=== PATIENT | female | born 1960 | race Caucasian/White ===

== ENCOUNTER 2018-12-03 16:54 | Inpatient (IN) | payer OTHER ==
[2018-12-03] MEDS ORDERED: SODIUM CHLORIDE 1,000 ML IV STA (17:17)
[2018-12-03] MEDS ORDERED: ONDANSETRON 4 MG/2 ML VIAL IVPUSH ONE (17:17)
[2018-12-03] MEDS ORDERED: ONDANSETRON 4 MG/2 ML VIAL ONE (17:36)
--- NOTE | 2018-12-03 17:48 | PDOC ---
Documentation entered by Sp Shin SCRIBE, acting as scribe for Nancie Mendoza MD. Nancie Mendoza MD: This documentation has been prepared by the Kip lees Daniel, SCRIBE, under my direction and personally reviewed by me in its entirety. I confirm that the documentation accurately reflects all work, treatment, procedures, and medical decision making performed by me. History of Present Illness - General Chief Complaint: Blood Sugar Problem Stated Complaint: VOMITING, HIGH BLOOD SUGAR Time Seen by Provider: 12/03/18 16:57 History Source: Patient Exam Limitations: No Limitations - History of Present Illness Initial Comments: 12/03/18 17:25 The patient is a 58 year old female with a past medical history of diabetes and GERD here today for evaluation of vomiting and elevated blood sugar. The patient reports that she began NBNB emesis x several episodes since last night and went to an urgent care facility today who recommended that she come to the ER for r/o DKA. She reports starting the Atkins diet recently. She also notes being constipated for 1 week but states that she is able to pass gas. Patient notes an increase in thirst and an increase in urinary frequency. Patients blood sugar was 258 upon arrival. Patient's blood sugar was 261 at urgent care and urinalysis showed ketones and glucosuria. pt initially attributed sx of n/v to omelette yesterday morning. unable to tolerate toast today, but able to take PO alkaline water Patient denies headache, lightheadedness. Denies fever, chills. Denies chest pain, shortness of breath. Denies diarrhea, abdominal pain. Denies travel or sick contacts Allergies: NKA Social history: Denies illicit drug use, tobacco, or alcohol use. Surgical history: Denies any surgery PCP: Marcel Polanco 12/03/18 17:44 Past History - Past Medical History Allergies/Adverse Reactions: Allergies Allergy/AdvReac Type Severity Reaction Status Date / Time No Known Allergies Allergy Verified 12/03/18 16:55 Home Medications: Ambulatory Orders Canagliflozin [Invokana] 100 mg PO DAILY 12/03/18 metFORMIN XR [Glucophage *Xr* -] 1,000 mg PO BID 12/03/18 COPD: No Diabetes: Yes - Suicide/Smoking/Psychosocial Hx Smoking History: Never smoked Have you smoked in the past 12 months: No Information on smoking cessation initiated: No Hx Alcohol Use: No Review of Systems - Review of Systems Able to Perform ROS?: Yes Comments:: 12/03/18 17:26 GENERAL/CONSTITUTIONAL: No fever or chills. No weakness. no sweats. HEAD, EYES, EARS, NOSE AND THROAT: No change in vision or hearing. No ear pain or discharge. No sore throat or mouth pain. No difficulty swallowing. No congestion. CARDIOVASCULAR: No chest pain or palpitations, syncope or edema. RESPIRATORY: No SOB, cough, wheezing, or hemoptysis. GASTROINTESTINAL +vomiting. +constipation. No abdominal pain. No diarrhea. No bloody stools. +flatus GENITOURINARY: No hematuria, dysuria, frequency, urgency or other changes. MUSCULOSKELETAL: No joint or muscle swelling or pain. No decreased range of motion. No neck or back pain. SKIN: No rash or changes in skin color or lesions. No wounds. Endocrine: +increased thirst, +hyperglycemia. no polyuria. NEUROLOGIC: alert and oriented appropriately No headache, dizziness, loss of consciousness, or change in strength/sensation. No gait instability. HEMATOLOGIC/LYMPHATIC: No anemia, easy bruising/bleeding ALLERGIC/IMMUNOLOGIC: No allergies PSYCH: no anxiety/depression All other systems reviewed and negative, or as documented in HPI. 12/03/18 17:45 12/03/18 18:22 12/03/18 18:22 *Physical Exam - Vital Signs Last Vital Signs Temp Pulse Resp BP Pulse Ox 97.5 F L 119 H 18 124/73 99 12/03/18 16:54 12/03/18 16:54 12/03/18 16:54 12/03/18 16:54 12/03/18 16:54 - Physical Exam Comments: 12/03/18 17:26 General: awake and alert, NAD. HEENT: NCAT, PERRL, EOMI, clear conjunctiva, anicteric, clear oropharynx, no oral lesions.. +dry mucous membranes. Neck: neck supple, FROM Resp: CTAB, normal and even respirations, no respiratory distress CVS: +tachycardia. Regular rhythm, no murmurs, 2+ peripheral pulses throughout, no peripheral edema Abdomen: soft, obese, NT, no rebound or guarding. No CVAT. Back: nontender, normal inspection and ROM MSK: no edema, JON x4, ROM intact. No clubbing or cyanosis. normal bulk and tone. Neuro: alert, oriented appropriately; no focal neurologic deficits Skin: cool and dry to touch, cap refill <2 sec, normal color 12/03/18 17:45 12/03/18 17:46 12/03/18 18:22 Heart Score/ECG Review #1 ECG reviewed & interpreted by me at: 17:55 General ECG Interpretation: Sinus Rhythm, Normal Intervals Compared to previous ECG there are: Previous ECG unavail 12/03/18 18:40 sinus tachycardia at 108 bpm, nonspecific T wave abnormalities, poor R wave progression ED Treatment Course - LABORATORY CBC & Chemistry Diagram: 12/03/18 17:25 12/03/18 17:25 - ADDITIONAL ORDERS Additional order review: Laboratory Results 12/03/18 17:10 POC Glucometer 258 12/03/18 17:10 POC Glucometer 258 - RADIOLOGY Radiology Studies Ordered: Category Date Time Status ABDOMEN & PELVIS CT WITH CONTR [CT] Stat CT Scan 12/03/18 17:18 Ordered - Medications Given in the ED: ED Medications Discontinued Medications Generic Name Dose Route Start Last Admin Trade Name Freq PRN Reason Stop Dose Admin Ondansetron HCl 4 mg 12/03/18 17:17 12/03/18 17:40 Zofran Injection IVPUSH 12/03/18 17:18 4 mg ONCE ONE Administration Medical Decision Making - Critical Care Time Total Critical Care Time (minutes): 45 (metabolic crisis, DKA, dehydration) Critical Care Statement: The care of this patient involved high complexity decision making to prevent further life threatening deterioration of the patient 's condition and/or to evaluate & treat vital organ system(s) failure or risk of failure. - Medical Decision Making 12/03/18 17:46 See HPI for details. Prior notes reviewed, including admissions, discharges and consultations. Vital signs reviewed, +tachycardia, likely from dehydration. no pain no fever, respiratory sx or hypoxia. DDX DKA, HHS, dehydration, ketosis, electrolyte/metabolic derangements, infection, SBO, medication side effect, ileus. constipation. mesenteric ischemia , pancreatitis, hepatitis. laboratory results and imaging reviewed, basic labs notable for leukocytosis 16K with associated hemoconcentration, c/w dehydration. LFTs/lipase wnl Cr elevated 1.7, no prior, GFR borderline; this is most likely pre-renal/ dehydration with her recent Atkins diet precipitating non AG ketosis. ketosis/acetones noted, moderate euglycemic DKA AG 24. PH 7.11, acute metabolic acidosis ED course -interventions: IVF x2L (NSS, changed to LR for balanced chrystalloid), zofran, pepcid, reassess. moderate euglycemic DKA, indication for insulin gtt, initiated here at 0.1 units /kg/hr no benefit clinically with risk of side effects, of SQ or IV insulin bolus, especially pt is euglycemic with glucose 260s CT with no IV contrast with borderline GFR and risk of nephrotoxicity from profound dehydration and moderate DKA 12/03/18 18:18 ICU consultation, under Dr Mueller; spoke and s/o to Dr Valdivia resident on ICU admitting for moderate DKA, MORTEZA, dehydration, ICU and [facility] transfer updated to Dr Polanco, PMD; s/o to [facility], admitting to Dr Ham service 12/03/18 18:22 12/03/18 18:37 12/03/18 18:50 12/03/18 18:54 *DC/Admit/Observation/Transfer Diagnosis at time of Disposition: MORTEZA (acute kidney injury), Dehydration DKA (diabetic ketoacidosis) Qualifiers: Diabetes mellitus type: type 2 Diabetes mellitus complication detail: without coma Qualified Code(s): E11.10 - Type 2 diabetes mellitus with ketoacidosis without coma - Discharge Dispostion Condition at time of disposition: Guarded Decision to Admit order: Yes Decision to Admit order Date/Time: 12/03/18 18:21 Decision to Admit Order Category Date Time Status Decision to Admit to Hospital Routine Admission 12/03/18 18:20 Ordered - Referrals Referrals: Marcel Polanco MD [Primary Care Provider] - - Patient Instructions - Post Discharge Activity
[2018-12-03 17:53] LABS: HEMATOCRIT 50.1 % (32.4-45.2); MCH 29.6 pg (25.7-33.7); MEAN CELL VOLUME 92.4 fl (80-96); MEAN PLT VOLUME 9.9 fl (7.5-11.1); PLATELET COUNT 407 K/MM3 (134-434); RBC 5.42 M/mm3 (3.60-5.2); RDW 13.8 % (11.6-15.6); WHITE BLOOD COUNT 16.1 K/mm3 (4.0-10.8)
[2018-12-03 17:54] LABS: ALBUMIN 4.2 g/dl (3.4-5.0); BILIRUBIN,TOTAL 1.8 mg/dl (0.2-1); CALCIUM 9.7 mg/dl (8.5-10); CREATININE 1.7 mg/dl (0.55-1.3); POTASSIUM 4.2 mmol/L (3.5-5.1); TOT PROT 8.2 g/dl (6.4-8.2)
[2018-12-03] MEDS ORDERED: LACTATED RINGERS SOLUTION 1000 ML INFUS.BAG IV ONE (18:06)
[2018-12-03 18:10] LABS: PLATELET ESTIMATE ADEQUATE
[2018-12-03] MEDS ORDERED: FAMOTIDINE 20 MG/50 ML IVPB 20 MG/50 ML MG IVPB ONE (18:15)
[2018-12-03] MEDS ORDERED: INSULIN REGULAR HUMAN 100 UNITS/ML *VIAL ONE (18:20)
[2018-12-03 18:23] LABS: URINE APPEARANCE CLEAR; URINE BILIRUBIN 2+ (NEGATIVE); URINE COLOR YELLOW; URINE GLUCOSE (UA) 2+ (NEGATIVE); URINE KETONE 4+ (NEGATIVE)
[2018-12-03 18:24] LABS: URINE LEUK ESTERASE 0 (NEGATIVE); URINE NITRITE NEGATIVE (NEGATIVE); URINE PROTEIN 2+ (NEGATIVE); URINE UROBILINOGEN 0.2 (0.2-1.0)
[2018-12-03 18:27] LABS: EPI CELLS MODERATE /HPF; URINE BACTERIA FEW /hpf (NEGATIVE)
[2018-12-03] MEDS ORDERED: INSULIN REGULAR 100 UNITS in SODIUM CHLORIDE 99 ML IVPB SCH ×2 (18:30→20:51)
[2018-12-03 18:44] LABS: VENOUS PO2 52.4 mmHg (30-40)
[2018-12-03 18:47] LABS: VENOUS PH 7.11 (7.31-7.41)
[2018-12-03] MEDS ORDERED: SODIUM CHLORIDE 1,000 ML IV SCH (19:45)
[2018-12-03] MEDS ORDERED: DEXTROSE 5%-0.45% SALINE 1,000 ML IV SCH (20:00)
[2018-12-03 20:05] LABS: CREATININE 1.5 mg/dl (0.55-1.3); POTASSIUM 3.9 mmol/L (3.5-5.1)
--- NOTE | 2018-12-03 20:05 | CONSULT ---
Consultation: ICU CONSULT REQUEST: HISTORY OF PRESENT ILLNESS: 58F with pmh of DM2 and GERD presents to the ED with multiple episodes of vomiting for the past week as well as constipation for the past 2 weeks. Notably she started a Atkins-Keto diet for the past 2 weeks where she ate a very limited amount of carbs. She did this because she had stressors at work and had gained 10 pounds over the last few months, her fingerstick glucose being in the 300's during that time. This morning she came to her chiropractor who after hearing her symptoms suggested she goes to an urgent care. Once there she was found to have ketones and glucose in her urine so she was sent to the ER at [facility] where she was evaluated and diagnosed with mild DKA with glucose of 273, 2+ acetone and UA with 2+ glucose and 4+ ketones. Treated with 2L of fluids and insulin. Transferred to our ICU for management. REVIEW OF SYSTEMS: Asymptomatic CONSTITUTIONAL: Absent: fever, chills, diaphoresis, generalized weakness, malaise, loss of appetite, weight change HEENT: Absent: rhinorrhea, nasal congestion, throat pain, throat swelling, difficulty swallowing, mouth swelling, ear pain, eye pain, visual changes CARDIOVASCULAR: Absent: chest pain, syncope, palpitations, irregular heart rate, lightheadedness , peripheral edema RESPIRATORY: Absent: cough, shortness of breath, dyspnea with exertion, orthopnea, wheezing, stridor, hemoptysis GASTROINTESTINAL: Absent: abdominal pain, abdominal distension, nausea, vomiting, diarrhea, constipation, melena, hematochezia GENITOURINARY: Absent: dysuria, frequency, urgency, hesitancy, hematuria, flank pain, genital pain MUSCULOSKELETAL: Absent: myalgia, arthralgia, joint swelling, back pain, neck pain SKIN: Absent: rash, itching, pallor HEMATOLOGIC/IMMUNOLOGIC: Absent: easy bleeding, easy bruising, lymphadenopathy, frequent infections ENDOCRINE: Absent: unexplained weight gain, unexplained weight loss, heat intolerance, cold intolerance NEUROLOGIC: Absent: headache, focal weakness or paresthesias, dizziness, unsteady gait, seizure, mental status changes, bladder or bowel incontinence PSYCHIATRIC: Absent: anxiety, depression, suicidal or homicidal ideation, hallucinations. PHYSICAL EXAMINATION Vital Signs - 24 hr 12/03/18 12/03/18 16:54 19:19 Temperature 97.5 F L 97.8 F Pulse Rate 119 H Pulse Rate [ 109 H Left Apical] Respiratory 18 20 Rate Blood Pressure 124/73 Blood Pressure 143/73 [Right Arm] O2 Sat by Pulse 99 98 Oximetry (%) GENERAL: Awake, alert, and fully oriented, in no acute distress. HEAD: Normal with no signs of trauma. EYES: Pupils equal, round and reactive to light, extraocular movements intact, sclera anicteric, conjunctiva clear. No lid lag. EARS, NOSE, THROAT: Ears normal, nares patent, oropharynx clear without exudates. Moist mucous membranes. NECK: Normal range of motion, supple without lymphadenopathy, JVD, or masses. LUNGS: Breath sounds equal, clear to auscultation bilaterally. No wheezes, and no crackles. No accessory muscle use. HEART: Regular rate and rhythm, normal S1 and S2 without murmur, rub or gallop. ABDOMEN: Soft, nontender, not distended, normoactive bowel sounds, no guarding, no rebound, no masses. No hepatomegaly or splenomegaly. MUSCULOSKELETAL: Normal range of motion at all joints. No bony deformities or tenderness. No CVA tenderness. UPPER EXTREMITIES: 2+ pulses, warm, well-perfused. No cyanosis. No clubbing. Cap refill <2 seconds. No peripheral edema. LOWER EXTREMITIES: 2+ pulses, warm, well-perfused. No calf tenderness. No peripheral edema. NEUROLOGICAL: Cranial nerves II-XII intact. Normal speech. Normal gait. PSYCHIATRIC: Cooperative. Good eye contact. Appropriate mood and affect. SKIN: Warm, dry, normal turgor, no rashes or lesions noted. Laboratory Results - last 24 hr 12/03/18 12/03/18 12/03/18 17:10 17:25 17:25 WBC 16.1 H RBC 5.42 H Hgb 16.0 H Hct 50.1 H MCV 92.4 MCH 29.6 MCHC 32.0 RDW 13.8 Plt Count 407 MPV 9.9 Absolute Neuts (auto) 13.8 Neutrophils % No Result Required. Neutrophils % (Manual) 82.0 Band Neutrophils % 4.0 Lymphocytes % No Result Required. Lymphocytes % (Manual) 9.0 Monocytes % (Manual) 5 Platelet Estimate Adequate VBG pH POC VBG pCO2 POC VBG pO2 VBG HCO3 VBG O2 Sat (Benoit) VBG Base Excess Sodium 133 L Potassium 4.2 Chloride 100 Carbon Dioxide 9 L Anion Gap 24 H BUN 27.0 H Creatinine 1.7 H Est GFR (CKD-EPI)AfAm 37.60 Est GFR (CKD-EPI)NonAf 32.44 POC Glucometer 258 Random Glucose 273 H Lactic Acid Calcium 9.7 Total Bilirubin 1.8 H AST 14 L ALT 15 Alkaline Phosphatase 92 Total Protein 8.2 Albumin 4.2 Lipase 84 Urine Color Urine Appearance Urine pH Ur Specific [place] Urine Protein Urine Glucose (UA) Urine Ketones Urine Blood Urine Nitrite Urine Bilirubin Urine Urobilinogen Ur Leukocyte Esterase Urine WBC (Auto) Urine RBC (Auto) U Epithel Cells (Auto) Urine Bacteria (Auto) Acetone, Qual 12/03/18 12/03/18 12/03/18 17:25 17:25 17:25 WBC RBC Hgb Hct MCV MCH MCHC RDW Plt Count MPV Absolute Neuts (auto) Neutrophils % Neutrophils % (Manual) Band Neutrophils % Lymphocytes % Lymphocytes % (Manual) Monocytes % (Manual) Platelet Estimate VBG pH 7.11 L* POC VBG pCO2 26.0 L POC VBG pO2 52.4 H VBG HCO3 7.9 L VBG O2 Sat (Benoit) 81.6 H VBG Base Excess -21.3 L Sodium Potassium Chloride Carbon Dioxide Anion Gap BUN Creatinine Est GFR (CKD-EPI)AfAm Est GFR (CKD-EPI)NonAf POC Glucometer Random Glucose Lactic Acid 1.6 Calcium Total Bilirubin AST ALT Alkaline Phosphatase Total Protein Albumin Lipase Urine Color Urine Appearance Urine pH Ur Specific [place] Urine Protein Urine Glucose (UA) Urine Ketones Urine Blood Urine Nitrite Urine Bilirubin Urine Urobilinogen Ur Leukocyte Esterase Urine WBC (Auto) Urine RBC (Auto) U Epithel Cells (Auto) Urine Bacteria (Auto) Acetone, Qual Positive moderate 2+ H 12/03/18 12/03/18 18:15 19:40 WBC RBC Hgb Hct MCV MCH MCHC RDW Plt Count MPV Absolute Neuts (auto) Neutrophils % Neutrophils % (Manual) Band Neutrophils % Lymphocytes % Lymphocytes % (Manual) Monocytes % (Manual) Platelet Estimate VBG pH POC VBG pCO2 POC VBG pO2 VBG HCO3 VBG O2 Sat (Benoit) VBG Base Excess Sodium Potassium Chloride Carbon Dioxide Anion Gap BUN Creatinine Est GFR (CKD-EPI)AfAm Est GFR (CKD-EPI)NonAf POC Glucometer 174 Random Glucose Lactic Acid Calcium Total Bilirubin AST ALT Alkaline Phosphatase Total Protein Albumin Lipase Urine Color Yellow Urine Appearance Clear Urine pH 5.0 Ur Specific [place] 1.025 Urine Protein 2+ Urine Glucose (UA) 2+ H Urine Ketones 4+ H Urine Blood 1+ Urine Nitrite Negative Urine Bilirubin 2+ Urine Urobilinogen 0.2 Ur Leukocyte Esterase 0 Urine WBC (Auto) 2-5 Urine RBC (Auto) 5-10 U Epithel Cells (Auto) Moderate Urine Bacteria (Auto) Few Acetone, Qual Active Medications Generic Name Dose Route Start Last Admin Trade Name Danica PRN Reason Stop Dose Admin Insulin Human Regular 100 100 mls @ 9.43 mls/hr 12/03/18 18:30 12/03/18 18:30 units/ Sodium Chloride IVPB 0.1 units/kg/hr TITR LIZZ 9.43 mls/hr Administration Protocol 0.1 UNITS/KG/HR Dextrose/Sodium Chloride 1,000 mls @ 125 mls/hr 12/03/18 20:00 D5-1/2ns - IV ASDIR LIZZ ASSESSMENT/PLAN: Mild DKA: - Serum glucose 182 on arrival, sodium of 135. Switching fluids to D5 1/2 NS - Potassium 4.2->3.9, adding 20meq for each liter of fluid to keep serum K between 4 and 5. - Glucose now below 200, decreasing rate of insulin to 0.05U/kg/h. - No need for bicab at this time. VBG PH 7.11. - Anion gap closing 24>20?>17 MORTEZA - Will continue to monitor decrease in creatinine Constipation - NPO for now. - Laxative when resume PO. Will continue to monitor until full closure of the gap until patient safe for floors Dispo: We will continue to follow the patient. Thank you for this consultative opportunity. Visit type - Emergency Visit Emergency Visit: Yes ED Registration Date: 12/03/18 Care time: The patient presented to the Emergency Department on the above date and was hospitalized for further evaluation of their emergent condition. - New Patient This patient is new to me today: Yes Date on this admission: 12/05/18 - Critical Care Critical Care patient: Yes Total Critical Care Time (in minutes): 35 Critical Care Statement: The care of this patient involved high complexity decision making to prevent further life threatening deterioration of the patient 's condition and/or to evaluate & treat vital organ system(s) failure or risk of failure. ATTENDING PHYSICIAN STATEMENT I saw and evaluated the patient. I reviewed the resident's note and discussed the case with the resident. I agree with the resident's findings and plan as documented. SUBJECTIVE: OBJECTIVE: ASSESSMENT AND PLAN:
[2018-12-03] MEDS ORDERED: IBUPROFEN 400 MG TABLET (FP) PO ONE (20:40)
[2018-12-03] MEDS ORDERED: D5-1/2NS+20 MEQ KCL - 20 MEQ/1,000 ML INFUS.BAG IV SCH ×2 (21:00→21:14)
[2018-12-03 21:48] LABS: BLOOD UREA NITROGEN 23.2 mg/dL (7-18); CALCIUM 8.9 mg/dL (8.5-10.1); CREATININE 1.5 mg/dL (0.55-1.3)
[2018-12-03] MEDS ORDERED: CHLORHEXIDINE GLUCONATE 4% CLEANSER FOR DECOLONIZATION TP SCH (22:00)
--- NOTE | 2018-12-03 22:22 | HP ---
CHIEF COMPLAINT:nausea,vomiting PCP:Dr. Marcel Polanco HISTORY OF PRESENT ILLNESS: Ms. England is a 58 year old female with a past medical history of diabetes and GERD presented to to ED for evaluation of vomiting and elevated blood sugar. The patient reports that she began NBNB emesis x several episodes since last night and went to an urgent care facility today who recommended that she come to the ER for r/o DKA. She reports starting the Atkins diet on November 25. She also notes being constipated for 1 week but states that she is able to pass gas. Patient notes an increase in thirst and an increase in urinary frequency. Patients blood sugar was 258 upon arrival. Patient's blood sugar was 261 at urgent care and urinalysis showed ketones and glucosuria. pt reports having stressors at work prior to starting the Atkins Diet and would eat sweets. pt felt fine first week of starting Atkins diet, last night vomited after eating an omlette, this morning unable to tolerate toast. ER course was notable for: (1)Anion Gap 24 (2)creatinine 1.7 (3) Recent Travel:denies PAST MEDICAL HISTORY: DM PAST SURGICAL HISTORY: Tonsillectomy Adenoids removed Lipoma bx on foot Left breast biopsy Social History: Smoking:denies Alcohol:denies Drugs: denies Family History: Allergies cefuroxime [From Ceftin] Allergy (Verified 12/03/18 20:09) HOME MEDICATIONS: Home Medications Medication Instructions Recorded Canagliflozin [Invokana] 100 mg PO DAILY 12/03/18 metFORMIN XR [Glucophage *Xr* -] 1,000 mg PO BID 12/03/18 REVIEW OF SYSTEMS CONSTITUTIONAL: Absent: fever, chills, diaphoresis, generalized weakness, malaise, loss of appetite, weight change HEENT: Absent: rhinorrhea, nasal congestion, throat pain, throat swelling, difficulty swallowing, mouth swelling, ear pain, eye pain, visual changes CARDIOVASCULAR: Absent: chest pain, syncope, palpitations, irregular heart rate, lightheadedness , peripheral edema RESPIRATORY: Absent: cough, shortness of breath, dyspnea with exertion, orthopnea, wheezing, stridor, hemoptysis GASTROINTESTINAL:+nausea, vomiting, Constipation Absent: abdominal pain, abdominal distension, diarrhea, melena, hematochezia GENITOURINARY: Absent: dysuria, frequency, urgency, hesitancy, hematuria, flank pain, genital pain MUSCULOSKELETAL: Absent: myalgia, arthralgia, joint swelling, back pain, neck pain SKIN: Absent: rash, itching, pallor HEMATOLOGIC/IMMUNOLOGIC: Absent: easy bleeding, easy bruising, lymphadenopathy, frequent infections ENDOCRINE: Absent: unexplained weight gain, unexplained weight loss, heat intolerance, cold intolerance NEUROLOGIC: Absent: headache, focal weakness or paresthesias, dizziness, unsteady gait, seizure, mental status changes, bladder or bowel incontinence PSYCHIATRIC: Absent: anxiety, depression, suicidal or homicidal ideation, hallucinations. PHYSICAL EXAMINATION Vital Signs - 24 hr 12/03/18 12/03/18 12/03/18 16:54 18:00 19:19 Temperature 97.5 F L 97.8 F Pulse Rate 119 H Pulse Rate [ 111 H 109 H Left Apical] Respiratory 18 19 20 Rate Blood Pressure 124/73 Blood Pressure 129/76 143/73 [Right Arm] O2 Sat by Pulse 99 98 98 Oximetry (%) 12/03/18 19:50 Temperature 97.8 F Pulse Rate 106 H Pulse Rate [ Left Apical] Respiratory 20 Rate Blood Pressure 115/64 Blood Pressure [Right Arm] O2 Sat by Pulse Oximetry (%) GENERAL: Awake, alert, and fully oriented, in no acute distress. HEAD: Normal with no signs of trauma. EYES: Pupils equal, round and reactive to light, extraocular movements intact, sclera anicteric, conjunctiva clear. No lid lag. EARS, NOSE, THROAT: Ears normal, nares patent, oropharynx clear without exudates. Moist mucous membranes. NECK: Normal range of motion, supple without lymphadenopathy, JVD, or masses. LUNGS: Breath sounds equal, clear to auscultation bilaterally. No wheezes, and no crackles. No accessory muscle use. HEART: Regular rate and rhythm, normal S1 and S2 without murmur, rub or gallop. ABDOMEN: Soft, nontender, not distended, normoactive bowel sounds, no guarding, no rebound, no masses. No hepatomegaly or splenomegaly. MUSCULOSKELETAL: Normal range of motion at all joints. No bony deformities or tenderness. No CVA tenderness. UPPER EXTREMITIES: 2+ pulses, warm, well-perfused. No cyanosis. No clubbing. No peripheral edema. LOWER EXTREMITIES: 2+ pulses, warm, well-perfused. No calf tenderness. No peripheral edema. NEUROLOGICAL: Cranial nerves II-XII intact. Normal speech. Normal gait. PSYCHIATRIC: Cooperative. Good eye contact. Appropriate mood and affect. SKIN: Warm, dry, normal turgor, no rashes or lesions noted, normal capillary refill. Laboratory Results - last 24 hr 12/03/18 12/03/18 12/03/18 17:10 17:25 17:25 WBC 16.1 H RBC 5.42 H Hgb 16.0 H Hct 50.1 H MCV 92.4 MCH 29.6 MCHC 32.0 RDW 13.8 Plt Count 407 MPV 9.9 Absolute Neuts (auto) 13.8 Neutrophils % No Result Required. Neutrophils % (Manual) 82.0 Band Neutrophils % 4.0 Lymphocytes % No Result Required. Lymphocytes % (Manual) 9.0 Monocytes % (Manual) 5 Platelet Estimate Adequate VBG pH POC VBG pCO2 POC VBG pO2 VBG HCO3 VBG O2 Sat (Benoit) VBG Base Excess Sodium 133 L Potassium 4.2 Chloride 100 Carbon Dioxide 9 L Anion Gap 24 H BUN 27.0 H Creatinine 1.7 H Est GFR (CKD-EPI)AfAm 37.60 Est GFR (CKD-EPI)NonAf 32.44 POC Glucometer 258 Random Glucose 273 H Lactic Acid Calcium 9.7 Total Bilirubin 1.8 H AST 14 L ALT 15 Alkaline Phosphatase 92 Total Protein 8.2 Albumin 4.2 Lipase 84 Urine Color Urine Appearance Urine pH Ur Specific [place] Urine Protein Urine Glucose (UA) Urine Ketones Urine Blood Urine Nitrite Urine Bilirubin Urine Urobilinogen Ur Leukocyte Esterase Urine WBC (Auto) Urine RBC (Auto) U Epithel Cells (Auto) Urine Bacteria (Auto) Acetone, Qual 12/03/18 12/03/18 12/03/18 17:25 17:25 17:25 WBC RBC Hgb Hct MCV MCH MCHC RDW Plt Count MPV Absolute Neuts (auto) Neutrophils % Neutrophils % (Manual) Band Neutrophils % Lymphocytes % Lymphocytes % (Manual) Monocytes % (Manual) Platelet Estimate VBG pH 7.11 L* POC VBG pCO2 26.0 L POC VBG pO2 52.4 H VBG HCO3 7.9 L VBG O2 Sat (Benoit) 81.6 H VBG Base Excess -21.3 L Sodium Potassium Chloride Carbon Dioxide Anion Gap BUN Creatinine Est GFR (CKD-EPI)AfAm Est GFR (CKD-EPI)NonAf POC Glucometer Random Glucose Lactic Acid 1.6 Calcium Total Bilirubin AST ALT Alkaline Phosphatase Total Protein Albumin Lipase Urine Color Urine Appearance Urine pH Ur Specific [place] Urine Protein Urine Glucose (UA) Urine Ketones Urine Blood Urine Nitrite Urine Bilirubin Urine Urobilinogen Ur Leukocyte Esterase Urine WBC (Auto) Urine RBC (Auto) U Epithel Cells (Auto) Urine Bacteria (Auto) Acetone, Qual Positive moderate 2+ H 12/03/18 12/03/18 12/03/18 18:15 19:30 19:40 WBC RBC Hgb Hct MCV MCH MCHC RDW Plt Count MPV Absolute Neuts (auto) Neutrophils % Neutrophils % (Manual) Band Neutrophils % Lymphocytes % Lymphocytes % (Manual) Monocytes % (Manual) Platelet Estimate VBG pH POC VBG pCO2 POC VBG pO2 VBG HCO3 VBG O2 Sat (Benoit) VBG Base Excess Sodium 135 L Potassium 3.9 Chloride 105 Carbon Dioxide 10 L Anion Gap 20 H BUN 26.0 H Creatinine 1.5 H Est GFR (CKD-EPI)AfAm 43.74 Est GFR (CKD-EPI)NonAf 37.74 POC Glucometer 174 Random Glucose 182 H Lactic Acid Calcium 9.0 Total Bilirubin AST ALT Alkaline Phosphatase Total Protein Albumin Lipase Urine Color Yellow Urine Appearance Clear Urine pH 5.0 Ur Specific [place] 1.025 Urine Protein 2+ Urine Glucose (UA) 2+ H Urine Ketones 4+ H Urine Blood 1+ Urine Nitrite Negative Urine Bilirubin 2+ Urine Urobilinogen 0.2 Ur Leukocyte Esterase 0 Urine WBC (Auto) 2-5 Urine RBC (Auto) 5-10 U Epithel Cells (Auto) Moderate Urine Bacteria (Auto) Few Acetone, Qual 12/03/18 12/03/18 21:00 21:31 WBC RBC Hgb Hct MCV MCH MCHC RDW Plt Count MPV Absolute Neuts (auto) Neutrophils % Neutrophils % (Manual) Band Neutrophils % Lymphocytes % Lymphocytes % (Manual) Monocytes % (Manual) Platelet Estimate VBG pH POC VBG pCO2 POC VBG pO2 VBG HCO3 VBG O2 Sat (Benoit) VBG Base Excess Sodium 141 Potassium 4.0 Chloride 110 H Carbon Dioxide 14 L Anion Gap 17 H BUN 23.2 H Creatinine 1.5 H Est GFR (CKD-EPI)AfAm 43.74 Est GFR (CKD-EPI)NonAf 37.74 POC Glucometer 95 Random Glucose 95 Lactic Acid Calcium 8.9 Total Bilirubin AST ALT Alkaline Phosphatase Total Protein Albumin Lipase Urine Color Urine Appearance Urine pH Ur Specific [place] Urine Protein Urine Glucose (UA) Urine Ketones Urine Blood Urine Nitrite Urine Bilirubin Urine Urobilinogen Ur Leukocyte Esterase Urine WBC (Auto) Urine RBC (Auto) U Epithel Cells (Auto) Urine Bacteria (Auto) Acetone, Qual ASSESSMENT/PLAN: is a 58 yr old F, medical condition DM, GERD admitted for Admitting Diagnosis DKA-mild MORTEZA Chronic Problems DM GERD A/P #DKA -admit to ICU -Anion 24, Ph 7.11, acute metabolic acidosis -insulin gtt, initiated at [facility] 0.1 units/kg/hr -BS 261 in ED -Monitor FS Q 1hr -BMP [id number] electrolytes -IVF D5 1/2 NS 20 MEQ KCL -NPO -antiemetics PRN #MORTEZA -Creat 1.7 -IVF -monitor labs #Constipation -CT abd-no obstruction -no fecal impaction -start laxatives when taking PO #GERD-stable -not on PPI Full Code Dispo requires inpatient treatment FEN IVF monitor electrolytes NPO Visit type - Emergency Visit Emergency Visit: Yes ED Registration Date: 12/03/18 Care time: The patient presented to the Emergency Department on the above date and was hospitalized for further evaluation of their emergent condition. - New Patient This patient is new to me today: Yes Date on this admission: 12/03/18 - Critical Care Critical Care patient: No Total Critical Care Time (in minutes): 45 Critical Care Statement: The care of this patient involved high complexity decision making to prevent further life threatening deterioration of the patient 's condition and/or to evaluate & treat vital organ system(s) failure or risk of failure.
[2018-12-03 22:27] VITALS: BMI 32.8
[2018-12-03] MEDS: MUPIROCIN 2% TOPICAL OINTMENT FOR DECOLONIZATION NS SCH (22:32)
[2018-12-04 01:40] LABS: BLOOD UREA NITROGEN 19.8 mg/dL (7-18); CALCIUM 8.5 mg/dL (8.5-10.1); CREATININE 1.4 mg/dL (0.55-1.3); POTASSIUM 3.5 mmol/L (3.5-5.1)
[2018-12-04 05:20] LABS: BASO % 0.9 % (0-2.0); EOS % 1.3 % (0-4.5); HEMATOCRIT 42.7 % (32.4-45.2); HEMOGLOBIN 14.3 GM/dL (10.7-15.3); LYMPH % 23.1 % (8-40); MCH 30.3 pg (25.7-33.7); MCHC 33.5 g/dl (32.0-36.0); MEAN CELL VOLUME 90.3 fl (80-96); MEAN PLT VOLUME 8.9 fl (7.5-11.1); MONO % 9.6 % (3.8-10.2); NEUT % 65.1 % (42.8-82.8); PLATELET COUNT 321 K/MM3 (134-434); RBC 4.73 M/mm3 (3.60-5.2); RDW 14.1 % (11.6-15.6); WHITE BLOOD COUNT 10.1 K/mm3 (4.0-10.0)
[2018-12-04 05:40] LABS: BLOOD UREA NITROGEN 17.1 mg/dL (7-18); CALCIUM 8.4 mg/dL (8.5-10.1); CREATININE 1.5 mg/dL (0.55-1.3)
[2018-12-04] MEDS ORDERED: INSULIN (LEVEMIR) 100 UNITS/ML UNITS SQ ONE (06:26)
--- NOTE | 2018-12-04 08:28 | EKG ---
Test Reason : Blood Pressure : / mmHG Vent. Rate : 108 BPM Atrial Rate : 108 BPM P-R Int : 186 ms QRS Dur : 090 ms QT Int : 338 ms P-R-T Axes : 048 -22 107 degrees QTc Int : 452 ms SINUS TACHYCARDIA POSSIBLE LEFT ATRIAL ENLARGEMENT ANTERIOR INFARCT , AGE UNDETERMINED ABNORMAL ECG NO PREVIOUS ECGS AVAILABLE Confirmed by ANSLEY RODAS, DOMENIC ([id number]) on 12/04/2018 8:28:16 AM Referred By: DR WAY Confirmed By:DOMENIC PANCHAL MD
--- NOTE | 2018-12-04 09:01 | PN ---
Progress Note, Physician Chief Complaint: offers no compliants. denies nausea/vomiting. eating breakfast. 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 History of Present Illness: Ms. England is a 58 year old female with a past medical history of diabetes and GERD presented to to ED for evaluation of vomiting and elevated blood sugar. She reports starting the Atkins diet on November 25. She also notes being constipated for 1 week but states that she is able to pass gas. Patient notes an increase in thirst and an increase in urinary frequency. Patients blood sugar was 258 upon arrival. Patient's blood sugar was 261 at urgent care and urinalysis showed ketones and glucosuria. ER course was notable for: Anion Gap 24, creatinine 1.7, bicarb 19, wbc 16, +4 urine ketones, +2 glocuse, +acetone. She was started on an insulin drip and has and now her AG is closed. Insulin drip to be d/c today and patient to be started on SS. - Current Medication List Current Medications: Active Medications Chlorhexidine Gluconate (Hibiclens For Decolonization -) 1 applic TP HS [facility] Last Admin: 12/03/18 22:32 Dose: 1 applic Insulin Human Regular 100 (units/ Sodium Chloride) 100 mls @ 4.71 mls/hr IVPB TITR [facility]; Protocol Stop: 12/04/18 09:10 Last Titration: 12/03/18 23:00 Dose: 0.02 units/kg/hr, 2.3 mls/hr Mupirocin (Bactroban Ointment (For Decolonization) -) 1 applic NS BID [facility] Stop: 12/08/18 21:59 Last Admin: 12/03/18 22:32 Dose: 1 applic - Objective Vital Signs: Vital Signs Temperature 98.1 F 12/03/18 21:30 Pulse Rate 101 H 12/04/18 08:00 Respiratory Rate 18 12/04/18 08:00 Blood Pressure 90/65 12/04/18 08:00 O2 Sat by Pulse Oximetry (%) 100 12/04/18 08:00 Constitutional: Yes: Well Nourished, No Distress, Calm Eyes: Yes: WNL HENT: Yes: WNL Neck: Yes: WNL, Supple Cardiovascular: Yes: Regular Rate and Rhythm, Tachycardia Respiratory: Yes: Regular, CTA Bilaterally Gastrointestinal: Yes: WNL, Normal Bowel Sounds, Soft ...Rectal Exam: Yes: Deferred Extremities: Yes: WNL Edema: No Integumentary: Yes: WNL Neurological: Yes: WNL, Alert, Oriented ...Motor Strength: WNL Psychiatric: Yes: WNL, Alert, Oriented Labs: CBC, BMP 12/04/18 05:00 12/04/18 05:00 - ....Imaging EKG: Image Reviewed (tachycardia, sinus) Problem List - Problems (1) DKA (diabetic ketoacidosis) Assessment/Plan: DKA resolved patient started on Novolog SS Monitor BGMs diabetic diet Code(s): E11.10 - TYPE 2 DIABETES MELLITUS WITH KETOACIDOSIS WITHOUT COMA Qualifiers: Diabetes mellitus type: type 2 Diabetes mellitus complication detail: without coma Qualified Code(s): E11.10 - Type 2 diabetes mellitus with ketoacidosis without coma (2) MORTEZA (acute kidney injury) Assessment/Plan: elevated creatinine above baseline continue IV hydration repeat labs in a.m. Code(s): N17.9 - ACUTE KIDNEY FAILURE, UNSPECIFIED (3) Dehydration Code(s): E86.0 - DEHYDRATION (4) Prophylactic measure Assessment/Plan: fen NS @ 75cc/hr monitor electrolytes diabetic diet prophy Heparin BID Code(s): Z29.9 - ENCOUNTER FOR PROPHYLACTIC MEASURES, UNSPECIFIED Visit type - Emergency Visit Emergency Visit: Yes ED Registration Date: 12/03/18 Care time: The patient presented to the Emergency Department on the above date and was hospitalized for further evaluation of their emergent condition. - New Patient This patient is new to me today: Yes Date on this admission: 12/04/18 - Critical Care Critical Care patient: Yes Total Critical Care Time (in minutes): 60 Critical Care Statement: The care of this patient involved high complexity decision making to prevent further life threatening deterioration of the patient 's condition and/or to evaluate & treat vital organ system(s) failure or risk of failure.
[2018-12-04] MEDS: MUPIROCIN 2% TOPICAL OINTMENT FOR DECOLONIZATION NS SCH (09:16)
[2018-12-04 10:26] LABS: BLOOD UREA NITROGEN 17.1 mg/dL (7-18); CALCIUM 8.7 mg/dL (8.5-10.1); CREATININE 1.6 mg/dL (0.55-1.3); POTASSIUM 3.9 mmol/L (3.5-5.1)
--- NOTE | 2018-12-04 12:03 | PN ---
Teaching Attending Note Name of Resident: Anastasia Randle ATTENDING PHYSICIAN STATEMENT I saw and evaluated the patient. I reviewed the resident's note and discussed the case with the resident. I agree with the resident's findings and plan as documented. SUBJECTIVE: Pt seen and examined in the ICU. Anion gap closed, insulin gtt turned off this AM, started on long acting insulin. OBJECTIVE: Vital Signs Period Temp Pulse Resp BP Sys/Chavez Pulse Ox Last 24 Hr 97.5 F-98.1 F 91-119 14-20 90-143/52-85 98-100 Intake & Output 12/01/18 12/02/18 12/03/18 12/04/18 23:59 23:59 23:59 23:59 Intake Total 400 1461 Balance 400 1461 Weight 95.254 kg Gen: NAD at rest Heart: RRR Lung: decreased breath sounds at the bases Abd: soft, nontender Ext: no edema CBC, BMP 12/04/18 05:00 12/04/18 09:30 Active Medications Chlorhexidine Gluconate (Hibiclens For Decolonization -) 1 applic TP HS [facility] Last Admin: 12/03/18 22:32 Dose: 1 applic Mupirocin (Bactroban Ointment (For Decolonization) -) 1 applic NS BID [facility] Stop: 12/08/18 21:59 Last Admin: 12/04/18 09:16 Dose: 1 applic ASSESSMENT AND PLAN: Diabetic Ketoacidosis resolved Acute Kidney Injury GERD - glucose control - IVF - monitor urine output, creatinine - [employer] eval - DVT prophylaxis - can monitor on floor
[2018-12-04] MEDS ORDERED: SODIUM CHLORIDE 0.45% 1,000 ML IV SCH (12:15)
--- NOTE | 2018-12-04 13:30 | PN ---
Physical Exam: SUBJECTIVE: Patient seen and examined at bedside. No acute events overnight. Patient admitted to ICU for management of DKA. This morning her anion gap had closed, the patient resumed a regular diet and was feeling well. She is stable to be transferred to floors. OBJECTIVE: Vital Signs Period Temp Pulse Resp BP Sys/Chavez Pulse Ox Last 24 Hr 97.5 F-98.1 F 91-119 14-20 90-143/52-85 98-100 GENERAL: Awake, alert, and fully oriented, in no acute distress. HEAD: Normal with no signs of trauma. EYES: Pupils equal, round and reactive to light, extraocular movements intact, sclera anicteric, conjunctiva clear. No lid lag. EARS, NOSE, THROAT: Ears normal, nares patent, oropharynx clear without exudates. Moist mucous membranes. NECK: Normal range of motion, supple without lymphadenopathy, JVD, or masses. LUNGS: Breath sounds equal, clear to auscultation bilaterally. No wheezes, and no crackles. No accessory muscle use. HEART: Regular rate and rhythm, normal S1 and S2 without murmur, rub or gallop. ABDOMEN: Soft, nontender, not distended, normoactive bowel sounds, no guarding, no rebound, no masses. No hepatomegaly or splenomegaly. MUSCULOSKELETAL: Normal range of motion at all joints. No bony deformities or tenderness. UPPER EXTREMITIES: 2+ pulses, warm, well-perfused. No cyanosis. No clubbing. Cap refill <2 seconds. No peripheral edema. LOWER EXTREMITIES: 2+ pulses, warm, well-perfused. No calf tenderness. No peripheral edema. NEUROLOGICAL: Cranial nerves II-XII intact. Normal speech. Normal gait. PSYCHIATRIC: Cooperative. Good eye contact. Appropriate mood and affect. SKIN: Warm, dry, normal turgor, no rashes or lesions noted. Laboratory Results - last 24 hr 12/03/18 12/03/18 12/03/18 17:10 17:25 17:25 WBC 16.1 H RBC 5.42 H Hgb 16.0 H Hct 50.1 H MCV 92.4 MCH 29.6 MCHC 32.0 RDW 13.8 Plt Count 407 MPV 9.9 Absolute Neuts (auto) 13.8 Neutrophils % No Result Required. Neutrophils % (Manual) 82.0 Band Neutrophils % 4.0 Lymphocytes % No Result Required. Lymphocytes % (Manual) 9.0 Monocytes % Monocytes % (Manual) 5 Eosinophils % Basophils % Nucleated RBC % Platelet Estimate Adequate VBG pH POC VBG pCO2 POC VBG pO2 VBG HCO3 VBG O2 Sat (Benoit) VBG Base Excess Sodium 133 L Potassium 4.2 Chloride 100 Carbon Dioxide 9 L Anion Gap 24 H BUN 27.0 H Creatinine 1.7 H Est GFR (CKD-EPI)AfAm 37.60 Est GFR (CKD-EPI)NonAf 32.44 POC Glucometer 258 Random Glucose 273 H Lactic Acid Calcium 9.7 Total Bilirubin 1.8 H AST 14 L ALT 15 Alkaline Phosphatase 92 Total Protein 8.2 Albumin 4.2 Lipase 84 Urine Color Urine Appearance Urine pH Ur Specific Waterfall Urine Protein Urine Glucose (UA) Urine Ketones Urine Blood Urine Nitrite Urine Bilirubin Urine Urobilinogen Ur Leukocyte Esterase Urine WBC (Auto) Urine RBC (Auto) U Epithel Cells (Auto) Urine Bacteria (Auto) Acetone, Qual 12/03/18 12/03/18 12/03/18 17:25 17:25 17:25 WBC RBC Hgb Hct MCV MCH MCHC RDW Plt Count MPV Absolute Neuts (auto) Neutrophils % Neutrophils % (Manual) Band Neutrophils % Lymphocytes % Lymphocytes % (Manual) Monocytes % Monocytes % (Manual) Eosinophils % Basophils % Nucleated RBC % Platelet Estimate VBG pH 7.11 L* POC VBG pCO2 26.0 L POC VBG pO2 52.4 H VBG HCO3 7.9 L VBG O2 Sat (Benoit) 81.6 H VBG Base Excess -21.3 L Sodium Potassium Chloride Carbon Dioxide Anion Gap BUN Creatinine Est GFR (CKD-EPI)AfAm Est GFR (CKD-EPI)NonAf POC Glucometer Random Glucose Lactic Acid 1.6 Calcium Total Bilirubin AST ALT Alkaline Phosphatase Total Protein Albumin Lipase Urine Color Urine Appearance Urine pH Ur Specific Waterfall Urine Protein Urine Glucose (UA) Urine Ketones Urine Blood Urine Nitrite Urine Bilirubin Urine Urobilinogen Ur Leukocyte Esterase Urine WBC (Auto) Urine RBC (Auto) U Epithel Cells (Auto) Urine Bacteria (Auto) Acetone, Qual Positive moderate 2+ H 12/03/18 12/03/18 12/03/18 18:15 19:30 19:40 WBC RBC Hgb Hct MCV MCH MCHC RDW Plt Count MPV Absolute Neuts (auto) Neutrophils % Neutrophils % (Manual) Band Neutrophils % Lymphocytes % Lymphocytes % (Manual) Monocytes % Monocytes % (Manual) Eosinophils % Basophils % Nucleated RBC % Platelet Estimate VBG pH POC VBG pCO2 POC VBG pO2 VBG HCO3 VBG O2 Sat (Benoit) VBG Base Excess Sodium 135 L Potassium 3.9 Chloride 105 Carbon Dioxide 10 L Anion Gap 20 H BUN 26.0 H Creatinine 1.5 H Est GFR (CKD-EPI)AfAm 43.74 Est GFR (CKD-EPI)NonAf 37.74 POC Glucometer 174 Random Glucose 182 H Lactic Acid Calcium 9.0 Total Bilirubin AST ALT Alkaline Phosphatase Total Protein Albumin Lipase Urine Color Yellow Urine Appearance Clear Urine pH 5.0 Ur Specific Waterfall 1.025 Urine Protein 2+ Urine Glucose (UA) 2+ H Urine Ketones 4+ H Urine Blood 1+ Urine Nitrite Negative Urine Bilirubin 2+ Urine Urobilinogen 0.2 Ur Leukocyte Esterase 0 Urine WBC (Auto) 2-5 Urine RBC (Auto) 5-10 U Epithel Cells (Auto) Moderate Urine Bacteria (Auto) Few Acetone, Qual 12/03/18 12/03/18 12/03/18 21:00 21:31 22:40 WBC RBC Hgb Hct MCV MCH MCHC RDW Plt Count MPV Absolute Neuts (auto) Neutrophils % Neutrophils % (Manual) Band Neutrophils % Lymphocytes % Lymphocytes % (Manual) Monocytes % Monocytes % (Manual) Eosinophils % Basophils % Nucleated RBC % Platelet Estimate VBG pH POC VBG pCO2 POC VBG pO2 VBG HCO3 VBG O2 Sat (Benoit) VBG Base Excess Sodium 141 Potassium 4.0 Chloride 110 H Carbon Dioxide 14 L Anion Gap 17 H BUN 23.2 H Creatinine 1.5 H Est GFR (CKD-EPI)AfAm 43.74 Est GFR (CKD-EPI)NonAf 37.74 POC Glucometer 95 99 Random Glucose 95 Lactic Acid Calcium 8.9 Total Bilirubin AST ALT Alkaline Phosphatase Total Protein Albumin Lipase Urine Color Urine Appearance Urine pH Ur Specific Waterfall Urine Protein Urine Glucose (UA) Urine Ketones Urine Blood Urine Nitrite Urine Bilirubin Urine Urobilinogen Ur Leukocyte Esterase Urine WBC (Auto) Urine RBC (Auto) U Epithel Cells (Auto) Urine Bacteria (Auto) Acetone, Qual 12/03/18 12/04/18 12/04/18 23:32 00:41 01:00 WBC RBC Hgb Hct MCV MCH MCHC RDW Plt Count MPV Absolute Neuts (auto) Neutrophils % Neutrophils % (Manual) Band Neutrophils % Lymphocytes % Lymphocytes % (Manual) Monocytes % Monocytes % (Manual) Eosinophils % Basophils % Nucleated RBC % Platelet Estimate VBG pH POC VBG pCO2 POC VBG pO2 VBG HCO3 VBG O2 Sat (Benoit) VBG Base Excess Sodium 140 Potassium 3.5 Chloride 111 H Carbon Dioxide 15 L Anion Gap 14 BUN 19.8 H Creatinine 1.4 H Est GFR (CKD-EPI)AfAm 47.55 Est GFR (CKD-EPI)NonAf 41.02 POC Glucometer 103 133 Random Glucose 128 H Lactic Acid Calcium 8.5 Total Bilirubin AST ALT Alkaline Phosphatase Total Protein Albumin Lipase Urine Color Urine Appearance Urine pH Ur Specific Waterfall Urine Protein Urine Glucose (UA) Urine Ketones Urine Blood Urine Nitrite Urine Bilirubin Urine Urobilinogen Ur Leukocyte Esterase Urine WBC (Auto) Urine RBC (Auto) U Epithel Cells (Auto) Urine Bacteria (Auto) Acetone, Qual 12/04/18 12/04/18 12/04/18 01:44 04:08 05:00 WBC 10.1 H RBC 4.73 Hgb 14.3 Hct 42.7 MCV 90.3 MCH 30.3 MCHC 33.5 RDW 14.1 Plt Count 321 MPV 8.9 Absolute Neuts (auto) 6.6 Neutrophils % 65.1 Neutrophils % (Manual) Band Neutrophils % Lymphocytes % 23.1 Lymphocytes % (Manual) Monocytes % 9.6 Monocytes % (Manual) Eosinophils % 1.3 Basophils % 0.9 Nucleated RBC % 0 Platelet Estimate VBG pH POC VBG pCO2 POC VBG pO2 VBG HCO3 VBG O2 Sat (Benoit) VBG Base Excess Sodium Potassium Chloride Carbon Dioxide Anion Gap BUN Creatinine Est GFR (CKD-EPI)AfAm Est GFR (CKD-EPI)NonAf POC Glucometer 115 116 Random Glucose Lactic Acid Calcium Total Bilirubin AST ALT Alkaline Phosphatase Total Protein Albumin Lipase Urine Color Urine Appearance Urine pH Ur Specific Waterfall Urine Protein Urine Glucose (UA) Urine Ketones Urine Blood Urine Nitrite Urine Bilirubin Urine Urobilinogen Ur Leukocyte Esterase Urine WBC (Auto) Urine RBC (Auto) U Epithel Cells (Auto) Urine Bacteria (Auto) Acetone, Qual 12/04/18 12/04/18 12/04/18 05:00 06:17 08:25 WBC RBC Hgb Hct MCV MCH MCHC RDW Plt Count MPV Absolute Neuts (auto) Neutrophils % Neutrophils % (Manual) Band Neutrophils % Lymphocytes % Lymphocytes % (Manual) Monocytes % Monocytes % (Manual) Eosinophils % Basophils % Nucleated RBC % Platelet Estimate VBG pH POC VBG pCO2 POC VBG pO2 VBG HCO3 VBG O2 Sat (Benoit) VBG Base Excess Sodium 140 Potassium 4.0 Chloride 112 H Carbon Dioxide 19 L Anion Gap 9 BUN 17.1 Creatinine 1.5 H Est GFR (CKD-EPI)AfAm 43.74 Est GFR (CKD-EPI)NonAf 37.74 POC Glucometer 169 227 Random Glucose 135 H Lactic Acid Calcium 8.4 L Total Bilirubin AST ALT Alkaline Phosphatase Total Protein Albumin Lipase Urine Color Urine Appearance Urine pH Ur Specific Waterfall Urine Protein Urine Glucose (UA) Urine Ketones Urine Blood Urine Nitrite Urine Bilirubin Urine Urobilinogen Ur Leukocyte Esterase Urine WBC (Auto) Urine RBC (Auto) U Epithel Cells (Auto) Urine Bacteria (Auto) Acetone, Qual 12/04/18 12/04/18 12/04/18 09:30 10:22 12:10 WBC RBC Hgb Hct MCV MCH MCHC RDW Plt Count MPV Absolute Neuts (auto) Neutrophils % Neutrophils % (Manual) Band Neutrophils % Lymphocytes % Lymphocytes % (Manual) Monocytes % Monocytes % (Manual) Eosinophils % Basophils % Nucleated RBC % Platelet Estimate VBG pH POC VBG pCO2 POC VBG pO2 VBG HCO3 VBG O2 Sat (Benoit) VBG Base Excess Sodium 137 Potassium 3.9 Chloride 110 H Carbon Dioxide 16 L Anion Gap 11 BUN 17.1 Creatinine 1.6 H Est GFR (CKD-EPI)AfAm 40.46 Est GFR (CKD-EPI)NonAf 34.91 POC Glucometer 303 245 Random Glucose 216 H Lactic Acid Calcium 8.7 Total Bilirubin AST ALT Alkaline Phosphatase Total Protein Albumin Lipase Urine Color Urine Appearance Urine pH Ur Specific Waterfall Urine Protein Urine Glucose (UA) Urine Ketones Urine Blood Urine Nitrite Urine Bilirubin Urine Urobilinogen Ur Leukocyte Esterase Urine WBC (Auto) Urine RBC (Auto) U Epithel Cells (Auto) Urine Bacteria (Auto) Acetone, Qual Active Medications Generic Name Dose Route Start Last Admin Trade Name Freq PRN Reason Stop Dose Admin Chlorhexidine Gluconate 1 applic 12/03/18 22:00 12/03/18 22:32 Hibiclens For Decolonization - TP 1 applic HS LIZZ Administration Sodium Chloride 1,000 mls @ 75 mls/hr 12/04/18 12:15 1/2 Normal Saline IV ASDIR LIZZ Mupirocin 1 applic 12/03/18 22:00 12/04/18 09:16 Bactroban Ointment (For Decolonization) - NS 12/08/18 21:59 1 applic BID LIZZ Administration ASSESSMENT/PLAN: Neuro: - Stable, at baseline mental status Pulm: - stable, at baseline CV: - stable, at baseline. - continue IV fluid maintenance given that Cr is still elevated Endo: Mild DKA - Serum glucose 182 on arrival, sodium of 135. - Continuing fluids, D5 1/2 NS @75 - Potassium 4.2->3.9, adding 20meq for each liter of fluid to keep serum K between 4 and 5. - Glucose now below 140, decreasing rate of insulin to 0.05U/kg/h. - No need for bicab at this time. VBG PH 7.11. - Anion gap closed 24>20?>17>14>9 - RD consulted to discuss nutrition plans with patient MORTEZA - Will continue to monitor decrease in creatinine Constipation - NPO for now. - Laxative when resume PO. Dispo: Anion gap is now closed and patient stable for transfer to the floors Visit type - Emergency Visit Emergency Visit: Yes ED Registration Date: 12/03/18 Care time: The patient presented to the Emergency Department on the above date and was hospitalized for further evaluation of their emergent condition. - New Patient This patient is new to me today: Yes Date on this admission: 12/04/18 - Critical Care Critical Care patient: Yes Total Critical Care Time (in minutes): 40 Critical Care Statement: The care of this patient involved high complexity decision making to prevent further life threatening deterioration of the patient 's condition and/or to evaluate & treat vital organ system(s) failure or risk of failure. ATTENDING PHYSICIAN STATEMENT I saw and evaluated the patient. I reviewed the resident's note and discussed the case with the resident. I agree with the resident's findings and plan as documented. SUBJECTIVE: OBJECTIVE: ASSESSMENT AND PLAN:
[2018-12-04] MEDS ORDERED: SENNOSIDES 8.6MG TABLET (FP) PO PRN (13:58)
[2018-12-04] MEDS ORDERED: INSULIN (NOVOLOG) ASPART 100 UNITS/ML 10ML VIAL ONE (14:43)
[2018-12-04] MEDS ORDERED: INSULIN SLIDING SCALE (NOVOLOG) 1 VIAL SQ SCH (16:30)
[2018-12-04] MEDS: INSULIN SLIDING SCALE (NOVOLOG) 1 VIAL SQ SCH ×2 (17:42→21:35)
[2018-12-04] MEDS: SODIUM CHLORIDE 0.45% 1,000 ML IV SCH (19:00)
[2018-12-04] MEDS: SENNOSIDES 8.6MG TABLET (FP) PO SCH (21:35)
[2018-12-04] MEDS: HEPARIN NA (PORCINE) 5,000 UNITS/ML 1ML VIAL SQ SCH (21:36)
[2018-12-05] MEDS: SODIUM CHLORIDE 0.45% 1,000 ML IV SCH ×2 (05:48→19:46)
[2018-12-05] MEDS: INSULIN SLIDING SCALE (NOVOLOG) 1 VIAL SQ SCH ×6 (06:04→21:14)
[2018-12-05 08:17] LABS: HEMATOCRIT 39.6 % (32.4-45.2); HEMOGLOBIN 13.2 GM/dL (10.7-15.3); MCH 30.1 pg (25.7-33.7); MCHC 33.4 g/dl (32.0-36.0); MEAN CELL VOLUME 90.1 fl (80-96); MEAN PLT VOLUME 9.5 fl (7.5-11.1); PLATELET COUNT 253 K/MM3 (134-434); WHITE BLOOD COUNT 7.1 K/mm3 (4.0-10.0)
[2018-12-05 08:46] LABS: ALBUMIN 3.2 g/dl (3.4-5.0); BILIRUBIN,TOTAL 0.6 mg/dL (0.2-1); BLOOD UREA NITROGEN 13.2 mg/dL (7-18); CALCIUM 8.5 mg/dL (8.5-10.1); CREATININE 1.2 mg/dL (0.55-1.3); POTASSIUM 3.5 mmol/L (3.5-5.1); TOT PROT 6.6 g/dl (6.4-8.2)
[2018-12-05] MEDS: HEPARIN NA (PORCINE) 5,000 UNITS/ML 1ML VIAL SQ SCH ×2 (09:26→21:09)
--- NOTE | 2018-12-05 14:30 | PN ---
Progress Note, Physician Chief Complaint: offers no compliants. denies nausea/vomiting. eating breakfast. denies recent illness, has been followed by her PCP for diabetes, and currently does not have a mill hand. History of Present Illness: Ms. England is a 58 year old female with a past medical history of diabetes and GERD presented to to ED for evaluation of vomiting and elevated blood sugar. She reports starting the Atkins diet on November 25. She also notes being constipated for 1 week but states that she is able to pass gas. Patient notes an increase in thirst and an increase in urinary frequency. Patients blood sugar was 258 upon arrival. Patient's blood sugar was 261 at urgent care and urinalysis showed ketones and glucosuria. ER course was notable for: Anion Gap 24, creatinine 1.7, bicarb 19, wbc 16, +4 urine ketones, +2 glocuse, +acetone. She was started on an insulin drip and has and now her AG is closed. Insulin drip to was discontinued yesterday and patient was started on a sling scale. She is not on home insulin. Takes metformin 1000mg BID at home as well as Invokana. Plan if for home discharge tomorrow if renal function and blood sugars remain stable. She has a follow up appointment with her PCP and will see an endcrinologist as an outpatient. Further. she will be sent home on Humolog with a sliding scale. Invokana to be discontinued until she is followed up by her PCP. - Current Medication List Current Medications: Active Medications Heparin Sodium (Porcine) (Heparin -) 5,000 unit SQ BID [facility] Last Admin: 12/05/18 09:26 Dose: Not Given Sodium Chloride (1/2 Normal Saline) 1,000 mls @ 75 mls/hr IV ASDIR [facility] Last Admin: 12/05/18 05:48 Dose: 75 mls/hr Insulin Aspart (Novolog Vial Sliding Scale -) 1 vial SQ ACHS [facility]; Protocol Last Admin: 12/05/18 11:47 Dose: 6 units Metformin HCl (Glucophage -) 500 mg PO BID@0700,1630 LIZZ Senna (Senna -) 2 tab PO HS [facility] Last Admin: 12/04/18 21:35 Dose: 2 tab - Objective Vital Signs: Vital Signs Temperature 98.2 F 12/05/18 05:51 Pulse Rate 95 H 12/05/18 12:44 Respiratory Rate 18 12/05/18 12:44 Blood Pressure 133/70 12/05/18 12:44 O2 Sat by Pulse Oximetry (%) 100 12/04/18 21:00 Constitutional: Yes: Well Nourished, No Distress, Calm Eyes: Yes: WNL HENT: Yes: Pharyngeal Erythema Cardiovascular: Yes: WNL Respiratory: Yes: WNL Gastrointestinal: Yes: WNL ...Rectal Exam: Yes: Deferred Genitourinary: Yes: WNL Musculoskeletal: Yes: WNL Extremities: Yes: WNL Integumentary: Yes: WNL Wound/Incision: Yes: Clean/Dry Neurological: Yes: WNL, Alert, Oriented ...Motor Strength: WNL Psychiatric: Yes: WNL Labs: CBC, BMP 12/05/18 08:00 12/05/18 08:00 Problem List - Problems (1) DKA (diabetic ketoacidosis) Assessment/Plan: DKA resolved patient started on Novolog SS and metformin 500mg BID. Monitor BGMs, which are now more controlled. long discussion with patient regarding stopping her home invokana and start on a Humolog Kiwi pen. Patient to be taught how to self inject and monitor her BGMs ac/hs. medications called into her pharmacy and kiwi pen covered by her insurance. diabetic diet Code(s): E11.10 - TYPE 2 DIABETES MELLITUS WITH KETOACIDOSIS WITHOUT COMA Qualifiers: Diabetes mellitus type: type 2 Diabetes mellitus complication detail: without coma Qualified Code(s): E11.10 - Type 2 diabetes mellitus with ketoacidosis without coma (2) MORTEZA (acute kidney injury) Assessment/Plan: elevated creatinine above baseline on admission, now resolved with IVF. Continue IVF, plan to discontinue ivf in a.m if renal function remains stable. repeat labs in a.m. Code(s): N17.9 - ACUTE KIDNEY FAILURE, UNSPECIFIED (3) Dehydration Assessment/Plan: Improving Code(s): E86.0 - DEHYDRATION (4) Prophylactic measure Assessment/Plan: fen NS @ 75cc/hr monitor electrolytes diabetic diet prophy Heparin BID Code(s): Z29.9 - ENCOUNTER FOR PROPHYLACTIC MEASURES, UNSPECIFIED Visit type - Emergency Visit Emergency Visit: Yes ED Registration Date: 12/03/18 Care time: The patient presented to the Emergency Department on the above date and was hospitalized for further evaluation of their emergent condition. - New Patient This patient is new to me today: No - Critical Care Critical Care patient: No - Discharge Referral Referred to [facility] Med P.C.: No
[2018-12-05] MEDS ORDERED: metFORMIN HCL 500 MG TABLET (FP) PO SCH (16:30)
[2018-12-05] MEDS ORDERED: INSULIN (NOVOLOG) ASPART 100 UNITS/ML 10ML VIAL ONE (21:04)
[2018-12-05] MEDS: SENNOSIDES 8.6MG TABLET (FP) PO SCH (21:09)
[2018-12-06] MEDS: INSULIN SLIDING SCALE (NOVOLOG) 1 VIAL SQ SCH ×4 (06:23→17:06)
[2018-12-06] MEDS ORDERED: INSULIN (NOVOLOG) ASPART 100 UNITS/ML 10ML VIAL ONE (07:57)
[2018-12-06] MEDS: HEPARIN NA (PORCINE) 5,000 UNITS/ML 1ML VIAL SQ SCH (09:43)
[2018-12-06 11:10] LABS: BASO % 1.7 % (0-2.0); EOS % 3.1 % (0-4.5); HEMATOCRIT 39.3 % (32.4-45.2); HEMOGLOBIN 13.3 GM/dL (10.7-15.3); LYMPH % 25.4 % (8-40); MCH 30.4 pg (25.7-33.7); MCHC 33.8 g/dl (32.0-36.0); MEAN CELL VOLUME 89.7 fl (80-96); MEAN PLT VOLUME 9.9 fl (7.5-11.1); MONO % 8.1 % (3.8-10.2); NEUT % 61.7 % (42.8-82.8); PLATELET COUNT 260 K/MM3 (134-434); RBC 4.38 M/mm3 (3.60-5.2); RDW 14.1 % (11.6-15.6); WHITE BLOOD COUNT 7.4 K/mm3 (4.0-10.0)
[2018-12-06 11:18] LABS: ALBUMIN 3.4 g/dl (3.4-5.0); BILIRUBIN,TOTAL 0.3 mg/dL (0.2-1); BLOOD UREA NITROGEN 13.4 mg/dL (7-18); CALCIUM 9.3 mg/dL (8.5-10.1); MAGNESIUM 2.6 mg/dL (1.8-2.4); POTASSIUM 3.6 mmol/L (3.5-5.1); TOT PROT 6.9 g/dl (6.4-8.2)
--- NOTE | 2018-12-06 12:34 | DS ---
Physical Exam: SUBJECTIVE: Patient seen and examined at the bedside. feels well, ambulating well. she has an appointment with her PCP on and will follow up with an salt manager once referred by her PCP. OBJECTIVE: Vital Signs Period Temp Pulse Resp BP Sys/Chavez Pulse Ox Last 24 Hr 97.8 F-98.0 F 88-99 18-19 133-143/70-83 100 PHYSICAL EXAM GENERAL: The patient is awake, alert, and fully oriented, in no acute distress. HEAD: Normal with no signs of trauma. EYES: PERRL, extraocular movements intact, sclera anicteric, conjunctiva clear. ENT: Ears normal, nares patent, oropharynx clear without exudates, moist mucous membranes. NECK: Trachea midline, full range of motion, supple. LUNGS: Breath sounds equal, clear to auscultation bilaterally, no wheezes, no crackles, no accessory muscle use. HEART: Regular rate and rhythm ABDOMEN: Soft, nontender, nondistended, normoactive bowel sounds, no guarding EXTREMITIES: 2+ pulses, warm, well-perfused, no edema. NEUROLOGICAL: Normal speech, gait not observed. PSYCH: Normal mood, normal affect. SKIN: Warm, dry, normal turgor, no rashes or lesions noted. LABS Laboratory Results - last 24 hr 12/05/18 12/05/18 12/05/18 16:32 18:34 21:03 WBC RBC Hgb Hct MCV MCH MCHC RDW Plt Count MPV Absolute Neuts (auto) Neutrophils % Lymphocytes % Monocytes % Eosinophils % Basophils % Nucleated RBC % Sodium Potassium Chloride Carbon Dioxide Anion Gap BUN Creatinine Est GFR (CKD-EPI)AfAm Est GFR (CKD-EPI)NonAf POC Glucometer 155 186 166 Random Glucose Calcium Magnesium Total Bilirubin AST ALT Alkaline Phosphatase Total Protein Albumin 12/06/18 12/06/18 12/06/18 05:45 10:20 10:20 WBC 7.4 RBC 4.38 Hgb 13.3 Hct 39.3 MCV 89.7 MCH 30.4 MCHC 33.8 RDW 14.1 Plt Count 260 MPV 9.9 Absolute Neuts (auto) 4.6 Neutrophils % 61.7 Lymphocytes % 25.4 Monocytes % 8.1 Eosinophils % 3.1 D Basophils % 1.7 Nucleated RBC % 0 Sodium 140 Potassium 3.6 Chloride 108 H Carbon Dioxide 23 Anion Gap 9 BUN 13.4 Creatinine 1.0 Est GFR (CKD-EPI)AfAm 71.41 Est GFR (CKD-EPI)NonAf 61.62 POC Glucometer 177 Random Glucose 178 H Calcium 9.3 Magnesium 2.6 H Total Bilirubin 0.3 AST 10 L ALT 15 Alkaline Phosphatase 85 Total Protein 6.9 Albumin 3.4 HOSPITAL COURSE: Date of Admission:12/03/18 Date of Discharge: 12/06/18 Ms. England is a 58 year old female with a past medical history of diabetes and GERD presented to to ED for evaluation of vomiting and elevated blood sugar. She reports starting the Atkins diet on November 25. She also notes being constipated for 1 week but states that she is able to pass gas. Patient notes an increase in thirst and an increase in urinary frequency. Patients blood sugar was 258 upon arrival. Patient's blood sugar was 261 at urgent care and urinalysis showed ketones and glucosuria. ER course was notable for: Anion Gap 24, creatinine 1.7, bicarb 19, wbc 16, +4 urine ketones, +2 glocuse, +acetone. She was started on an insulin drip and has and now her AG is closed. Insulin drip to was discontinued and patient was started on a sling scale. She is not on home insulin. Takes metformin 1000mg BID at home as well as Invokana. Patient to be discharged home today. Her renal function is stable and her blood sugars are controlled with the insulin. An insulin pen (humalog) has been called into her pharmacy and she has been taught how to administer insulin as well as to use a sliding scale. She will continue Metformin at 500mg BID. She is refusing a visiting nurse. She has a follow up appointment with her PCP and will see an endcrinologist as an outpatient. Invokana to be discontinued until she is followed up by her PCP. Minutes to complete discharge: 60 Discharge Summary Reason For Visit: DKA Current Active Problems MORTEZA (acute kidney injury) (Acute) DKA (diabetic ketoacidosis) (Acute) Dehydration (Acute) Prophylactic measure (Acute) Condition: Improved - Instructions Diet, Activity, Other Instructions: Mrs England You were admitted to [facility] for DKA (diabetic Keto acidosis ). What is DKA? DKA is a life threatening of acid build up in your blood that can happen when your blood sugar is too high for too long. What triggers DKA? Can be triggered by nausea/vomiting, dehydration among other causes. What are the symptoms of DKA? The symptoms of DKA include excessive thirst, frequent urination, nausea/vomiting, abdominal pain, shortness of breath, fruity breath and confusion. Here are our recommendations to better control your diabetes: Start on Humolog Kiwi Pen. You will test your blood sugar 15 minutes before you eat a meal (three times per day for breakfast, lunch, dinner and at bedtime) If your blood sugar is between: 101-150 - DO NOT take any insulin. If you blood sugar is below 70, take apple or orange juice immediately and recheck in 15 minutes. 151-200 - take 4 units of insulin 201-250 - take 6 units of insulin 251-300 - take 8 units of insulin 301-350 - take 10 units of insulin 351-400 - take 12 units of insulin 400-and beyond, take 14 units of insulin and recheck your blood sugar in 15 minutes. If it remains above 400, please seek immediate medical attention. Follow ups: Please follow up with your primary care doctor within 3-5 days. Please follow up with an salt manager. We have a referral for salt manager on your discharge packet. Thank you for allowing us to care for you. Please call me with any questions Anita Connell NP [facility] [phone] Referrals: Marcel Polanco MD [Primary Care Provider] - (please follow up in 1 week for continuation fo care) Disposition: HOME - Home Medications Comprehensive Discharge Medication List: Ambulatory Orders Insulin Lispro [Humalog Kwikpen U-200] 5 unit SQ ACHS #2 insuln.pen 12/05/18 Lancets [Lancets Ultra Thin] 1 each MC ACHS #100 each 12/05/18 Miscellaneous Medical Supply [Glucometer Device] 1 each SQ ASDIR #1 kit Miscellaneous Medical Supply [Glucometer Test Strips #100] 1 each SQ ASDIR #1 box 12/05/18 Pen Needle, Diabetic, Safety [Assure Id Pen Needle] 1 each ACHS #100 dis.needle 12/05/18 metFORMIN XR [Glucophage Xr -] 500 mg PO BIDI #60 tab.sr.24h 12/06/18 Problem List - Problems (1) DKA (diabetic ketoacidosis) Assessment/Plan: resolved Code(s): E11.10 - TYPE 2 DIABETES MELLITUS WITH KETOACIDOSIS WITHOUT COMA Qualifiers: Diabetes mellitus type: type 2 Diabetes mellitus complication detail: without coma Qualified Code(s): E11.10 - Type 2 diabetes mellitus with ketoacidosis without coma (2) MORTEZA (acute kidney injury) Assessment/Plan: resolved Code(s): N17.9 - ACUTE KIDNEY FAILURE, UNSPECIFIED (3) Dehydration Assessment/Plan: resolved Code(s): E86.0 - DEHYDRATION This patient is new to me today: No Emergency Visit: Yes ED Registration Date: 12/03/18 Care time: The patient presented to the Emergency Department on the above date and was hospitalized for further evaluation of their emergent condition. Critical Care patient: No - Discharge Referral Referred to [facility] Med [facility] No
[2018-12-06 15:02] VITALS: BP 143/78; PULSE 103; TEMP 98.6
[2018-12-06] MEDS ORDERED: PT OWN MED DRAWER 7, Y5N ONE (17:03)
== END 2018-12-06 18:00 | disposition home or self-care (01) | DRG 682 ==
LOC: SUPCPDRO 16:54 → FER 16:54 → JICU 20:40 → J6S 12-04 18:40
PROVIDERS: ADMIT Internal Medicine; ATTEND Nurse Practitioner Family
DX: N17.9 Acute kidney failure, unspecified (principal); E11.10 Type 2 diabetes mellitus with ketoacidosis without coma; E86.0 Dehydration; K21.9 Gastro-esophageal reflux disease without esophagitis; K59.00 Constipation, unspecified
CPT/HCPCS: 36415; 71045-TC-FY; 74176-TC; 80048; 80053; 81003; 82009; 82803; 82962; 83036; 83605; 83690; 83735; 85025; 85027; 93005; 99285-25; J7030

== ENCOUNTER 2020-01-30 20:20 | Emergency (ER) | payer OTHER ==
--- NOTE | 2020-01-30 20:44 | PDOC ---
Documentation entered by Edin Coker SCRIBE, acting as scribe for Emery Gill MD. Emery Gill MD: This documentation has been prepared by the Sheela lees Angel, SCRIBE, under my direction and personally reviewed by me in its entirety. I confirm that the documentation accurately reflects all work, treatment, procedures, and medical decision making performed by me. History of Present Illness - General Chief Complaint: Eye Problem Stated Complaint: RIGHT EYE VISON CHANGE History Source: Patient Exam Limitations: No Limitations - History of Present Illness Initial Comments: 01/30/20 20:54 The patient is a 59 year old female with a significant past medical history of diabetes and GERD who presents to the ED with vision changes in her right eye. The patient states this morning when she woke up she noticed a black line obscuring her vision which then spread, making her vision in the entire right eye blurry. Prior to her arrival in the ED she went to an Urgent Care where she had a normal fluorescein stain. She was told to come into the ED for further evaluation. The patient notes wearing reading glasses and does not wear contacts. The patient has no other complaints here in the ED. Past History - Medical History Allergies/Adverse Reactions: Allergies Allergy/AdvReac Type Severity Reaction Status Date / Time clarithromycin [From Biaxin] Allergy Unknown Verified 01/30/20 20:44 cefuroxime [From Ceftin] Allergy Verified 12/03/18 20:09 Home Medications: Ambulatory Orders Insulin Lispro [Humalog Kwikpen U-200] 5 unit SQ ACHS #2 insuln.pen 12/05/18 Canagliflozin [Invokana] 100 mg PO DAILY 01/30/20 COPD: No Diabetes: Yes GI Disorders: Yes (GERD) - Psycho-Social/Smoking History Smoking History: Never smoked Have you smoked in the past 12 months: No Review of Systems - Review of Systems Able to Perform ROS?: Yes Comments:: 01/30/20 20:57 GENERAL/CONSTITUTIONAL: No fever or chills. No weakness. HEAD, EYES, EARS, NOSE AND THROAT: +Right eye blurry vision. No ear pain or discharge. No sore throat. CARDIOVASCULAR: No chest pain, no shortness of breath, no loss of consciousness RESPIRATORY: No cough, wheezing, or hemoptysis. GASTROINTESTINAL: No nausea, vomiting, diarrhea or constipation. GENITOURINARY: No dysuria, frequency, or change in urination. MUSCULOSKELETAL: No joint or muscle swelling or pain. No neck or back pain. SKIN: No rash NEUROLOGIC: No vertigo, no change in strength/sensation. ENDOCRINE: No increased thirst. No abnormal weight change. HEMATOLOGIC/LYMPHATIC: No anemia, easy bleeding, or history of blood clots. ALLERGIC/IMMUNOLOGIC: No hives or skin allergy. *Physical Exam - Physical Exam 01/30/20 21:01 "GENERAL: Awake, alert, and fully oriented, in no acute distress. HEAD: No signs of trauma EYES: PERRLA, EOMI, sclera anicteric, conjunctiva clear ENT: Auricles normal inspection, hearing grossly normal, nares patent, oropharynx clear without exudates. Moist mucosa NECK: Nontender, no stepoffs, Normal ROM, supple, no lymphadenopathy, JVD, or masses LUNGS: Breath sounds equal, clear to auscultation bilaterally. No wheezes, and no crackles HEART: Regular rate and rhythm, normal S1 and S2, no murmurs, rubs or gallops ABDOMEN: Soft, nontender, normoactive bowel sounds. No guarding, no rebound. No masses EXTREMITIES: Normal range of motion, no edema. No clubbing or cyanosis. No cords, erythema, or tenderness NEUROLOGICAL: Cranial nerves II through XII intact. 5/5 strength and sensation in all extremities, Normal speech, normal gait, normal cerebellar function SKIN: Warm, Dry, normal turgor, no rashes or lesions noted. Medical Decision Making - Medical Decision Making 01/30/20 21:01 59 F with R eye painless vision loss. Possible CRAO. - Discussed with Dr. Vero mae at [facility] (pt preference), who recommends ED to ED transfer - Pt consented for transfer Discharge - Discharge Information Problems reviewed: Yes Clinical Impression/Diagnosis: Vision loss Condition: Good Disposition: TRANSFER ACUTE CARE/OTHER HOSP - Follow up/Referral Referrals: Marcel Polanco MD [Primary Care Provider] - - Patient Discharge Instructions - Post Discharge Activity
[2020-01-30 20:50] VITALS: BMI 35.4
[2020-01-30 21:22] VITALS: BP 140/80; PULSE 109; TEMP 98.1
== END 2020-01-30 21:40 | disposition short-term general hospital (02) ==
LOC: FER 20:20
DX: H53.131 Sudden visual loss, right eye (principal)
CPT/HCPCS: 99283-25

== ENCOUNTER 2020-06-01 23:30 | Emergency (ER) | payer OTHER ==
[2020-06-01] MEDS ORDERED: SODIUM CHLORIDE 1,000 ML IV STA (23:45)
[2020-06-01 23:52] VITALS: BMI 35.6
[2020-06-02 00:22] LABS: BASO % 1.4 % (0-2.0); EOS % 2.2 % (0-4.5); HEMATOCRIT 44.2 % (32.4-45.2); HEMOGLOBIN 14.6 GM/dL (10.7-15.3); LYMPH % 22.9 % (8-40); MCH 30.6 pg (25.7-33.7); MCHC 33.1 g/dl (32.0-36.0); MEAN CELL VOLUME 92.5 fl (80-96); MONO % 7.5 % (3.8-10.2); PLATELET COUNT 310 K/MM3 (134-434); RBC 4.78 M/mm3 (3.60-5.2); RDW 13.9 % (11.6-15.6); WHITE BLOOD COUNT 10.1 K/mm3 (4.0-10.0)
[2020-06-02] MEDS ORDERED: SODIUM CHLORIDE 1,000 ML IV STA (00:35)
[2020-06-02 00:44] LABS: POTASSIUM 3.9 mmol/L (3.5-5.1)
[2020-06-02 00:45] LABS: URINE APPEARANCE CLEAR; URINE BILIRUBIN NEGATIVE (NEGATIVE); URINE COLOR YELLOW; URINE GLUCOSE (UA) 3+ (NEGATIVE); URINE KETONE TRACE (NEGATIVE); URINE LEUK ESTERASE NEGATIVE (NEGATIVE); URINE NITRITE NEGATIVE (NEGATIVE); URINE PROTEIN NEGATIVE (NEGATIVE); URINE UROBILINOGEN 0.2 mg/dL (0.2-1.0)
[2020-06-02 00:46] LABS: ALBUMIN 3.4 g/dl (3.4-5.0); BLOOD UREA NITROGEN 20.6 mg/dL (7-18); CALCIUM 9.6 mg/dL (8.5-10.1)
[2020-06-02 00:49] LABS: CREATININE 1.5 mg/dL (0.55-1.3)
[2020-06-02 00:51] LABS: BILIRUBIN,TOTAL 0.2 mg/dL (0.2-1); TOT PROT 7.5 g/dl (6.4-8.2)
[2020-06-02] MEDS ORDERED: INSULIN REGULAR HUMAN 100 UNITS/ML *VIAL IVPUSH ONE (01:42)
[2020-06-02] MEDS ORDERED: INSULIN REGULAR HUMAN 100 UNITS/ML *VIAL ONE (01:59)
[2020-06-02] MEDS ORDERED: SODIUM CHLORIDE 0.45% 1,000 ML IV SCH (02:00)
[2020-06-02] MEDS ORDERED: SODIUM CHLORIDE 0.45%/POT 20 MEQ/1,000 ML INFUS.BAG IV SCH (02:15)
[2020-06-02 04:50] VITALS: BP 121/60; PULSE 89
[2020-06-02 05:02] LABS: POTASSIUM 4.2 mmol/L (3.5-5.1)
[2020-06-02 05:04] LABS: CALCIUM 8.6 mg/dL (8.5-10.1)
[2020-06-02 05:08] LABS: CREATININE 1.3 mg/dL (0.55-1.3)
== END 2020-06-02 05:21 | disposition home or self-care (01) ==
LOC: FER 23:30
PROC: 3E013VG Introduction of Insulin into Subcutaneous Tissue, Percutaneous Approach (ICD-10-PCS; principal; 2020-06-01)
PROC: 3E033GC Introduction of Other Therapeutic Substance into Peripheral Vein, Percutaneous Approach (ICD-10-PCS; 2020-06-01)
PROC: 3E0337Z Introduction of Electrolytic and Water Balance Substance into Peripheral Vein, Percutaneous Approach (ICD-10-PCS; 2020-06-01)
PROC: 3E0337Z Introduction of Electrolytic and Water Balance Substance into Peripheral Vein, Percutaneous Approach (ICD-10-PCS; 2020-06-01)
DX: R73.9 Hyperglycemia, unspecified (principal); R00.0 Tachycardia, unspecified
CPT/HCPCS: 36415; 80048; 80053; 81003; 82010; 82962; 85025; 93005; 99284-25; J3480

== ENCOUNTER 2024-08-28 19:57 | Emergency (ER) | payer OTHER ==
[2024-08-28 20:37] VITALS: BP 160/93; RESP 18; TEMP 98.8; BMI 35.7
[2024-08-28] MEDS: SODIUM CHLORIDE 1,000 ML IV ONE ×3 (20:54→22:33)
[2024-08-28 21:12] LABS: ABSOLUTE IMMATURE GRANULOCYTES 0.04 x10^3/uL (0.0-0.031); BASOPHILS # 0.08 x10^3/uL (0.01-0.08); EOSINOPHIL % 2.8 % (0.7-5.8); HEMATOCRIT 42.9 % (34.1-44.9); HEMOGLOBIN 14.6 g/dL (11.2-15.7); MEAN CELL VOLUME 90.3 fl (79.4-94.8); MEAN PLT VOLUME 11.1 fl (9.4-12.3); MONOCYTE # 0.69 x10^3/uL (0.24-0.86); MONOCYTE % 6.5 % (4.7-12.5); PLATELET COUNT 306 x10^3/uL (182-369); RDW 12.7 % (12.4-16.4)
[2024-08-28 21:29] LABS: ALBUMIN 3.7 g/dl (3.4-5.0); BILIRUBIN,TOTAL 0.4 mg/dl (0.2-1); CALCIUM 9.4 mg/dl (8.5-10.1); CREATININE 1.1 mg/dl (0.6-1.3); MAGNESIUM 1.7 mg/dL (1.8-2.4); POTASSIUM 3.9 mmol/L (3.5-5.1); TOT PROT 6.5 g/dl (6.4-8.2)
[2024-08-28] MEDS ORDERED: INSULIN REGULAR HUMAN 100 UNITS/ML *VIAL ONE ×2 (21:34→22:33)
[2024-08-28] MEDS: INSULIN REGULAR HUMAN 100 UNITS/ML *VIAL IVPUSH ONE ×2 (21:35→22:33)
[2024-08-28] MEDS ORDERED: MAGNESIUM 1GM/D5W - 1 GM/100 ML IVPB IVPB ONE (21:37)
[2024-08-28] MEDS: MAGNESIUM 1GM/D5W - 1 GM/100 ML IVPB IVPB ONE (21:40)
[2024-08-28 22:59] LABS: HCV DIAGNOSTIC IN-HOUSE W/RFLX NON-REACTIVE (NONREACTIVE); HIV INTERPRETATION NEGATIVE (NEGATIVE)
[2024-08-28 23:32] VITALS: PULSE 96
== END 2024-08-28 23:34 | disposition home or self-care (01) ==
LOC: FER 19:57
PROC: 3E033GC Introduction of Other Therapeutic Substance into Peripheral Vein, Percutaneous Approach (ICD-10-PCS; principal; 2024-08-28)
PROC: 3E033GC Introduction of Other Therapeutic Substance into Peripheral Vein, Percutaneous Approach (ICD-10-PCS; 2024-08-28)
PROC: 3E033GC Introduction of Other Therapeutic Substance into Peripheral Vein, Percutaneous Approach (ICD-10-PCS; 2024-08-28)
PROC: 3E0337Z Introduction of Electrolytic and Water Balance Substance into Peripheral Vein, Percutaneous Approach (ICD-10-PCS; 2024-08-28)
PROC: 3E0337Z Introduction of Electrolytic and Water Balance Substance into Peripheral Vein, Percutaneous Approach (ICD-10-PCS; 2024-08-28)
PROC: 3E0337Z Introduction of Electrolytic and Water Balance Substance into Peripheral Vein, Percutaneous Approach (ICD-10-PCS; 2024-08-28)
DX: E11.65 Type 2 diabetes mellitus with hyperglycemia (principal); R00.2 Palpitations; F43.9 Reaction to severe stress, unspecified
CPT/HCPCS: 36415; 80053; 82962; 83735; 84484; 85025; 86803; 87389; 93005; 99284-25